=== PATIENT | male | born 1980 | race Two or more races ===

== ENCOUNTER 2025-05-18 00:16 | Emergency (ER) | payer BC ==
[~2025-05-18] VITALS: Ht 177.8 cm; Wt 92.1 kg
[2025-05-18 01:18] VITALS: BP 121/81
[2025-05-18] MEDS ORDERED: FLUORESCEIN SODIUM 1 MG STRIP ONE (03:26)
[2025-05-18] MEDS ORDERED: TETRACAINE HCL 0.5% OPHT DROP 2 ML BOTTLE ONE (03:27)
[2025-05-18] MEDS: TETRACAINE HCL 0.5% OPHT DROP 2 ML BOTTLE OP ONE (03:31)
[2025-05-18] MEDS: FLUORESCEIN SODIUM 1 MG STRIP OP ONE (03:31)
[2025-05-18] MEDS ORDERED: GENT5DRO4 EACHEYE (03:45)
[2025-05-18 04:08] VITALS: BP 120/80; TEMP 98; O2SAT 99
== END 2025-05-18 04:00 | disposition home or self-care (01) ==
LOC: ER 00:24
DX: H10.89 Other conjunctivitis (principal); Z86.79 Personal history of other diseases of the circulatory system
CPT/HCPCS: A4606; A4663